=== PATIENT | male | born 1950 | race Asian ===

== ENCOUNTER → 2017-06-10 | Outpatient (CLI) | payer SELFPAY ==
[~2017-06-10] MED LIST: ACIDOPHILUS LA1 EAC2 PO; ASPIRIN81 M2 PO; AUGMENTIN875 MG PO; CERTAVITE WITH1 EAC1 PO; DEPAKOTE ER500 MG PO; METFORMIN HCL500 MG PO; MULTI-DAY PLUS1 EACH PO; SENEXON-S TABL1 EACH PO; ULTRAM50 MG PO; VYTORIN 10/11 TABLET PO
== END | disposition home or self-care (01) ==
LOC: AMB 14:30
PROC: 0H98XZZ Drainage of Buttock Skin, External Approach (ICD-10-PCS; principal; 2017-06-10)
DX: L02.91 Cutaneous abscess, unspecified (principal)

== ENCOUNTER → 2017-06-19 | Outpatient (CLI) | payer SELFPAY ==
[~2017-06-19] MED LIST changes: +CLEARLAX510 GM PO
== END | disposition home or self-care (01) ==
LOC: AMB 11:30
DX: L02.31 Cutaneous abscess of buttock (principal)
CPT/HCPCS: 99211